=== PATIENT | male | born 1970 | race Caucasian/White ===

== ENCOUNTER 2024-03-22 17:45 | Emergency (ER) | payer OTHER, SELFPAY ==
--- NOTE | 2024-03-22 18:04 | ED.GENADULT ---
HPI - General Adult General Chief complaint: Upper Respiratory Infection Stated complaint: sore throat Time Seen by Provider: 03/22/24 18:04 Source: patient Mode of arrival: ambulatory Limitations: no limitations History of Present Illness HPI narrative: 53-year-old male patient presents to the [facility] with complaints of sore throat for the past 3 days. Patient denies fevers, body aches or chills. Denies headaches, abdominal pain or any other symptoms at this time. Patient states he has had a slight cough. Patient states he has been treating himself with [id number] room Robitussin and sucking on lozenges for his symptoms Related Data Allergies Allergy/AdvReac Type Severity Reaction Status Date / Time No Known Allergies Allergy Verified 03/22/24 18:25 Review of Systems Review of Systems: CONSTITUTIONAL: Denies fever, chills, or sweats. EYES: Denies visual changes, redness, or discharge. ENT: Denies rhinorrhea, congestion, positive sore throat, denies otalgia. CARDIOVASCULAR: Denies chest pain, palpitations, or edema. RESPIRATORY: positive mild cough denies dyspnea. GASTROINTESTINAL: Denies abdominal pain, nausea, vomiting, or diarrhea. GENITOURINARY: Denies dysuria or hematuria. SKIN: Denies rash or itching. MUSCULOSKELETAL: Denies back pain, joint pain, or myalgia. NEUROLOGIC: Denies headache, numbness, or weakness. PSYCHIATRIC: Denies anxiety or depression. [facility] Past Medical History Medical History (Updated 03/22/24 @ 18:46 by EUGENE Hinds) No significant past medical history Comments At the time of my signature I agree with nursing past medical history, surgical, social, and family history. There is no relevant family history pertinent to the presenting complaint. Exam Narrative: GENERAL: Well-appearing, well-nourished, and in no acute distress. HEAD: Normocephalic, atraumatic. EYES: PERRLA and EOMI. ENT: Nares clear, no rhinorrhea or epistaxis. Mucous membranes moist. posterior pharynx with erythema and what appears to be several small white patches to the posterior pharynx and the roof of the mouth. NECK: Supple. No lymphadenopathy CHEST: Clear to auscultation. No respiratory distress. HEART: Regular rate and rhythm. No murmur heard. Normal peripheral pulses. ABDOMEN: Soft, nontender, nondistended, normal active bowel sounds. EXTREMITIES: Normal range of motion. No edema. SKIN: Warm, dry, no rash. NEURO: No focal deficits. Alert and oriented x3. Course Course Level of Care: Express Care Visit Reevaluation(s) Reevaluation #1: Re-evaluated patient notified him that his strep test today is negative. Discussed with him that fact that he has no other symptoms but a sore throat and how the presentation of the white spots in his mouth appear I think this is most likely a thrush infection and is more fungal. We will go ahead and treat him with some nystatin swish and swallow mouthwash and encouraged her to follow up with his doctor. Date: 03/22/24 Time: 18:51 Vital Signs Vital signs: Vital Signs Temperature 36.6 C 03/22/24 18:10 Pulse Rate 80 03/22/24 18:10 Respiratory Rate 18 03/22/24 18:10 Blood Pressure 133/80 03/22/24 18:10 Pulse Oximetry 99 03/22/24 18:10 Oxygen Delivery Room Air 03/22/24 18:10 Temperature 36.6 C 03/22/24 18:10 Pulse Rate 80 03/22/24 18:10 Respiratory Rate 18 03/22/24 18:10 Blood Pressure 133/80 03/22/24 18:10 Pulse Oximetry 99 03/22/24 18:10 Oxygen Delivery Room Air 03/22/24 18:10 Vital signs reviewed. Medical Decision Making MDM Narrative Medical decision making narrative: Plan care for patient is to swab him for strep however I am also highly suspicious of a possible thrush since infection I will reassess once the strep has resulted. Differential Diagnosis Differential Diagnosis: Differential diagnosis: Allergic rhinitis, chronic sinusitis, tonsillitis, acute sinusitis, infectious mononucle
[2024-03-22 18:10] VITALS: BP 133/80; PULSE 80; RESP 18; TEMP 36.6; O2SAT 99
[2024-03-22 18:45] LABS: EDSTREPNEGPOS1 Negative (Negative)
== END 2024-03-22 18:53 | disposition home or self-care (01) ==
PROVIDERS: Emergency Provider Nurse Practitioner Family
DX: B37.0 Candidal stomatitis (principal)
CPT/HCPCS: 87081; 87880; 99203; G0463